=== PATIENT | male | born 1955 | race Caucasian/White ===

== ENCOUNTER 2017-04-09 20:17 | Emergency (ER) | payer MEDICAID, OTHER ==
[2017-04-09] MEDS ORDERED: Clindamycin CAP* 150 MG PO ONE (23:39)
[2017-04-09] MEDS ORDERED: Ibuprofen TAB* 600 MG PO ONE (23:39)
[2017-04-10] MEDS ORDERED: HYDROcodone/ACETAMIN 5-325 MG* 1 TAB PO ONE (00:36)
[2017-04-10] MEDS ORDERED: Clindamycin CAP* 150 MG ONE ×2 (00:41)
[2017-04-10 00:50] VITALS: BP 152/102
--- NOTE | 2017-04-10 07:26 | RAD ---
INDICATION: Concern for aspiration. COMPARISON: There are no prior studies available for comparison. TECHNIQUE: Dual-energy PA and lateral views of the chest were obtained. FINDINGS: The heart is within normal limits in size. Mediastinal and hilar contours appear within normal limits. The lungs are slightly hyperinflated and clear. No pleural effusion is seen. No radiopaque foreign body is noted. IMPRESSION: FINDINGS SUGGESTIVE OF COPD, NO EVIDENCE FOR ACUTE FINDING.
--- NOTE | 2017-04-10 09:05 | ED ---
Complex/Multi-Sys Presentation - HPI Summary HPI Summary: Pt sent from dentist, potential inhalation of tooth particles. Pt with extraction of three teeth 1600 this date. Pt denies SOB/cough. He states while getting 3 teeth extracted today at the dentist, he feels as though several teeth were broken and he either swallowed them or they got into his lungs. He denies any symptoms, but after he told the dentist such, the dentist sent him to the ED for a chest xray to assure no aspiration as occurred. He was also unable to pick up driver any of his medications based on his medicaid not being approved. He states he was prescribed Clindamycin 875mg and pain medication. He has not taken anything since discharge approximately 4 hours ago. Denies any and all symptoms including chest pain, SOB or dysphagia. - History Of Current Complaint Chief Complaint: EDGeneral Time Seen by Provider: 04/09/17 22:54 Hx Obtained From: Patient Onset/Duration: Gradual Onset Timing: Constant Severity Currently: Moderate Severity Initially: Moderate Location: Pain At: - Tooth 7, 8, 9 Character: Throbbing Associated Signs And Symptoms: Negative: Syncope, Headache, SOB, Cough, Wheezing , Hemoptysis, Chest Pain - Allergies/Home Medications Allergies/Adverse Reactions: Allergies Allergy/AdvReac Type Severity Reaction Status Date / Time No Known Allergies Allergy Verified 04/09/17 20:36 PMH/Surg Hx/FS Hx/Imm Hx Previously Healthy: Yes - Surgical History Surgery Procedure, Year, and Place: ulnar nerve L elbow 4 yrs ago Infectious Disease History: No Infectious Disease History: Denies: Traveled Outside the [place] in Last 30 Days - Social History Occupation: Employed Full-time Lives: With Family Alcohol Use: None Substance Use Type: Reports: None Hx Tobacco Use: Yes Smoking Status (MU): Unknown if Ever Smoked Review of Systems Constitutional: Negative Negative: Fever, Chills, Fatigue Eyes: Negative Positive: Dental Pain Cardiovascular: Negative Negative: Palpitations, Chest Pain Negative: Shortness Of Breath, Cough Positive: no symptoms reported, see HPI Skin: Negative Neurological: Negative All Other Systems Reviewed And Are Negative: Yes Physical Exam Triage Information Reviewed: Yes Vital Signs On Initial Exam: Initial Vitals Temp Pulse Resp BP Pulse Ox 98.3 F 76 16 173/88 96 04/09/17 20:25 04/09/17 20:25 04/09/17 20:25 04/09/17 20:25 04/09/17 20:25 Vital Signs Reviewed: Yes Appearance: Positive: Well-Appearing, Well-Nourished Skin: Positive: Warm, Skin Color Reflects Adequate Perfusion Head/Face: Positive: Normal Head/Face Inspection Eyes: Positive: EOMI, EMERITA, Conjunctiva Clear ENT: Positive: Normal ENT inspection Dental: Positive: Gross Decay/Caries @, Other - Tooth 7, 8, 9 Neck: Positive: Supple, No Lymphadenopathy Respiratory/Lung Sounds: Positive: Clear to Auscultation, Breath Sounds Present Cardiovascular: Positive: RRR, Pulses are Symmetrical in both Upper and Lower Extremities Neurological: Positive: Sensory/Motor Intact, Alert, Oriented to Person Place, Time, Speech Normal Psychiatric: Positive: Normal, Affect/Mood Appropriate Diagnostics - Vital Signs Vital Signs Temp Pulse Resp BP Pulse Ox 04/10/17 00:48 99.1 F 75 16 152/102 96 04/09/17 20:25 98.3 F 76 16 173/88 96 - Laboratory Lab Statement: Any lab studies that have been ordered have been reviewed, and results considered in the medical decision making process. Complex Multi-Symp Course/Dx Course Of Treatment: Patient arrives with request of chest xray by dentist following teeth extraction from tooth 7, 8, 9. chest xray read as normal. He denies any and all symptoms. I have given him 7 days supply of clindamycin 300mg four times daily for 7 days. I have given him an urgent RX d/t his medicaid insurance denial. I have advised ibuprofen in the meantime, but he will need to follow up to get a pain medication script. He is agreeable to this and to discharge. - Diagnoses Provider Diagnoses: H/O tooth extraction Discharge - Discharge Plan Condition: Stable Disposition: HOME Prescriptions: Clindamycin Cap(NF) [Clindamycin Cap 300 mg Cap(NF)] 300 mg PO Q6H #28 cap Referrals: No Primary Care Phys,NOPCP [Primary Care Provider] - Additional Instructions: Please follow up with your dentist Clindamycin 300mg four times daily for 7 days Continue to work with your insurance company to obtain your other medications
== END 2017-04-10 00:48 | disposition home or self-care (01) ==
LOC: ED 20:17
DX: K08.89 Other specified disorders of teeth and supporting structures (principal); K08.409 Partial loss of teeth, unspecified cause, unspecified class
CPT/HCPCS: 71046; 99282; A9270-GY

== ENCOUNTER 2017-04-11 11:28 | Emergency (ER) | payer MEDICAID ==
[2017-04-11 11:37] VITALS: BP 128/81
--- NOTE | 2017-04-11 11:58 | UC ---
Skin Complaint HPI - HPI Summary HPI Summary: 61 year old male with skin complaint . He had dental extraction 2 days ago due to numerous infected teeth. Started on clinda and 12 hours after taking the 1st dose started to note lower lip swelling. it worrsened to the point he did not take the med anymore after 4 pm yesterday. he states he had rash as well. it is improved at this time as the rash and the lip swelling present but much better than yesterday. he came in because he has the infection in his teeth and wants to ensure he can be treated with a different antibiotic. no fever. - History of Current Complaint Chief Complaint: UCAllergicReaction Time Seen by Provider: 04/11/17 11:52 Stated Complaint: SWOLLEN LIP Hx Obtained From: Patient Timing: Constant Onset Severity: Mild Current Severity: Moderate Related History: Recent change in medication - Allergy/Home Medications Allergies/Adverse Reactions: Allergies Allergy/AdvReac Type Severity Reaction Status Date / Time No Known Allergies Allergy Verified 04/11/17 11:32 Home Medications: Home Medications oxyCODONE/Acetam5/325MG PREPAK [Percocet 5/325 TAB*] 04/11/17 [History] Review of Systems Skin: Other - lip swelling ENT: Dental Pain All Other Systems Reviewed And Are Negative: Yes PMH/Surg Hx/FS Hx/Imm Hx Previously Healthy: Yes - Surgical History Surgical History: Yes Surgery Procedure, Year, and Place: ulnar nerve L elbow 4 yrs ago - Family History Known Family History: Positive: None - Social History Alcohol Use: None Substance Use Type: None Smoking Status (MU): Never Smoked Tobacco Physical Exam Triage Information Reviewed: Yes Appearance: Well-Appearing, No Pain Distress, Well-Nourished Vital Signs: Initial Vital Signs Temp 98.5 F 04/11/17 11:35 Pulse 82 04/11/17 11:35 Resp 20 04/11/17 11:35 BP 128/81 04/11/17 11:35 Pulse Ox 98 04/11/17 11:35 Vital Signs Reviewed: Yes Eye Exam: Normal ENT Exam: Normal Dental: Positive: Gross Decay/Caries @ - Right upper gum with healing abscess / purulent material present, only a few teeth in the mouth Neck exam: Normal Neck: Positive: 1 Respiratory Exam: Normal Cardiovascular Exam: Normal Musculoskeletal Exam: Normal Neurological Exam: Normal Psychological Exam: Normal Skin Exam: Normal Course/Dx - Course Course Of Treatment: Lip swelling and rash improved but start hydroxyzine at this time. He has no shortness of breath, no throat closing , no dyphagia, no wheeze and will start amox for dental abscess. If Sx persist or worsen then he will go to ED. - Diagnoses Provider Diagnoses: Angioedema and dental abscess Discharge - Discharge Plan Condition: Good Disposition: HOME Prescriptions: Amoxicillin PO (*) [Amoxicillin 500 MG CAP*] 500 mg PO TID #30 cap hydrOXYzine HCL TAB* [Atarax 25 MG TAB*] 25 mg PO TID PRN #20 tab PRN Reason: Itching Patient Education Materials: Angioedema (ED), Dental Abscess (ED) Referrals: No Primary Care Phys,NOPCP [Primary Care Provider] - 3 Days Images Dental: 1 - no teeth, purlent material present
== END 2017-04-11 12:22 | disposition home or self-care (01) ==
LOC: UCEAST 11:28
DX: T78.3XXA Angioneurotic edema, initial encounter (principal); K04.7 Periapical abscess without sinus; Z98.890 Other specified postprocedural states; X58.XXXA Exposure to other specified factors, initial encounter; Y92.9 Unspecified place or not applicable
CPT/HCPCS: 99211; G0463

== ENCOUNTER 2019-12-23 18:57 | Inpatient (IN) ==
[2019-12-23] MEDS ORDERED: Morphine 4 MG/ML VIAL (1 ml) IV ONE (20:31)
[2019-12-23] MEDS ORDERED: NS 0.9% 1000 ml BAG 1,000 ML IV ONE (20:31)
[2019-12-23 20:36] LABS: ABS Lymphocytes 1.4 10^3/ul (1.0-4.8); ABS Monocytes 0.8 10^3/ul (0-0.8); ABS Neutrophils 11.5 10^3/ul (1.5-7.7); Eosinophil % 0.3 %; Hematocrit 39 % (42-52); Hemoglobin 13.3 g/dL (14.0-18.0); Lymphocyte % 10.1 %; Mean Corpuscular HGB Conc 34 g/dL (31-36); Mean Corpuscular Hemoglobin 30 pg (27-31); Mean Corpuscular Volume 89 fL (80-94); Mean Platelet Volume 8.4 fL (7.4-10.4); Platelet Count 357 10^3/uL (150-450); Red Blood Count 4.37 10^6 /uL (4.18-5.48); Red Cell Distribution Width 14 % (10-15); White Blood Count 13.8 10^3/uL (3.5-10.8)
[2019-12-23 20:54] LABS: Albumin 3.3 g/dL (3.2-5.2); Albumin/Globulin Ratio 0.6 (1-3); BUN/Creatinine Ratio 13.5 (8-20); C Reactive Protein 242.02 mg/L (<8.01); Calcium 8.5 mg/dL (8.6-10.3); EGFR African American 128.4 (>60); EGFR Non-African American 106.2 (>60); Globulin 5.2 g/dL (2-4); Potassium 3.4 mmol/L (3.5-5.0); Total Bilirubin 0.8 mg/dL (0.2-1.0); Total Protein 8.5 g/dL (6.4-8.9)
[2019-12-23] MEDS ORDERED: Iohexol 300 (CONTRAST) 10 ML SDV IV ONE (21:06)
[2019-12-23 22:02] LABS: Salicylate 3.4 mg/dL (<30)
[2019-12-23 22:56] LABS: INR 1.77 (0.82-1.09)
[2019-12-23] MEDS ORDERED: Zosyn per Pharmacy NOTE FOLLOW UP SCH (23:45)
[2019-12-23] MEDS ORDERED: Piperacillin/Tazobac ADVAN 3.375 GM in NS 0.9% 100 ml BAG 100 ML IV ONE (23:50)
[2019-12-23] MEDS ORDERED: Morphine 4 MG/ML VIAL (1 ml) IV PRN (23:56)
[2019-12-23] MEDS ORDERED: Potassium Chlor 20 meq TAB.ER PO ONE (23:56)
[2019-12-24] MEDS ORDERED: Ondansetron 4 mg VIAL 2 MG/ML 2 ml VIAL IV PRN (00:17)
[2019-12-24 01:50] LABS: Urine Appearance Clear; Urine Bilirubin Negative (Negative); Urine Blood 1+ (Negative); Urine Color Yellow; Urine Glucose Negative (Negative); Urine Ketones Trace (Negative); Urine Nitrite Negative (Negative); Urine Protein Negative (Negative); Urine Specific Gravity 1.042 (1.010-1.030); Urine Urobilinogen Positive (Negative)
[2019-12-24 01:57] LABS: Urine Bacteria Absent (Absent); Urine Red Blood Cell 1+(3-5/hpf) (Absent); Urine White Blood Cell Trace(0-5/hpf) (Absent)
[2019-12-24 03:02] LABS: ABS Monocytes 0.9 10^3/ul (0-0.8); ABS Neutrophils 9.7 10^3/ul (1.5-7.7); Eosinophil % 0.2 %; Hematocrit 33 % (42-52); Lymphocyte % 15.6 %; Mean Corpuscular HGB Conc 34 g/dL (31-36); Mean Corpuscular Hemoglobin 30 pg (27-31); Mean Corpuscular Volume 88 fL (80-94); Mean Platelet Volume 8.3 fL (7.4-10.4); Platelet Count 297 10^3/uL (150-450); Red Blood Count 3.72 10^6 /uL (4.18-5.48); Red Cell Distribution Width 14 % (10-15); White Blood Count 12.6 10^3/uL (3.5-10.8)
[2019-12-24 03:22] LABS: EGFR African American 180.9 (>60); EGFR Non-African American 149.5 (>60)
[2019-12-24] MEDS: Heparin 5000 UNITS/ML 1 mL VIAL IV SCH ×4 (03:35→23:25)
[2019-12-24] MEDS: Heparin DRIP 25,000 UNITS BAG 25,000 UNITS/500 ML BAG IV SCH ×4 (03:37→20:10)
[2019-12-24 03:51] LABS: Hepatitis B Surface Antigen Nonreactive (Nonreactive)
[2019-12-24 03:56] LABS: Hepatitis A Ab IgM Negative (Negative)
[2019-12-24 03:57] LABS: Hepatitis B Core IgM Nonreactive (Nonreactive)
[2019-12-24] MEDS: ZOSYN 3.375 GM Q8H per EXTENDED INFUSION IV SCH ×3 (05:34→21:30)
[2019-12-24 05:37] LABS: ABS Basophils 0.1 10^3/ul (0-0.2); ABS Lymphocytes 1.8 10^3/ul (1.0-4.8); ABS Monocytes 0.8 10^3/ul (0-0.8); ABS Neutrophils 10.3 10^3/ul (1.5-7.7); Eosinophil % 0.1 %; Hematocrit 32 % (42-52); Hemoglobin 10.4 g/dL (14.0-18.0); Lymphocyte % 13.8 %; Mean Corpuscular HGB Conc 33 g/dL (31-36); Mean Corpuscular Hemoglobin 29 pg (27-31); Mean Corpuscular Volume 89 fL (80-94); Mean Platelet Volume 8.2 fL (7.4-10.4); Platelet Count 301 10^3/uL (150-450); Red Blood Count 3.56 10^6 /uL (4.18-5.48); Red Cell Distribution Width 14 % (10-15)
[2019-12-24 05:54] LABS: Albumin 2.7 g/dL (3.2-5.2); Albumin/Globulin Ratio 0.7 (1-3); BUN/Creatinine Ratio 13.2 (8-20); Calcium 7.6 mg/dL (8.6-10.3); EGFR African American 188.8 (>60); Globulin 3.8 g/dL (2-4); Indirect Bilirubin 0.5 mg/dL (0.3-1.0); Potassium 3.8 mmol/L (3.5-5.0); Total Bilirubin 0.7 mg/dL (0.2-1.0); Total Protein 6.5 g/dL (6.4-8.9)
[2019-12-24 06:09] LABS: Hepatitis C Antibody Reactive (Negative)
[2019-12-24 14:16] LABS: Magnesium 1.8 mg/dL (1.9-2.7)
[2019-12-24 14:47] LABS: TSH Ultra Thyroid Stim Horm 2.93 mcIU/mL (0.34-5.60)
[2019-12-24] MEDS ORDERED: Gadoxetate (CONTRAST) 181.43 MG/ML 10 ML SDV IV ONE (15:22)
[2019-12-24] MEDS ORDERED: Magnesium Sulfate 2 gm BAG 2 GM/50 ML BAG IVPB ONE (16:00)
[2019-12-25] MEDS: ZOSYN 3.375 GM Q8H per EXTENDED INFUSION IV SCH ×3 (05:16→21:03)
[2019-12-25 05:58] LABS: ABS Eosinophils 0.1 10^3/ul (0-0.6); ABS Lymphocytes 2.2 10^3/ul (1.0-4.8); ABS Monocytes 0.6 10^3/ul (0-0.8); ABS Neutrophils 6.6 10^3/ul (1.5-7.7); Eosinophil % 1.2 %; Hematocrit 30 % (42-52); Hemoglobin 10.2 g/dL (14.0-18.0); Lymphocyte % 23.2 %; Mean Corpuscular HGB Conc 35 g/dL (31-36); Mean Corpuscular Hemoglobin 31 pg (27-31); Mean Corpuscular Volume 89 fL (80-94); Mean Platelet Volume 8.7 fL (7.4-10.4); Platelet Count 252 10^3/uL (150-450); Red Blood Count 3.34 10^6 /uL (4.18-5.48); Red Cell Distribution Width 14 % (10-15); White Blood Count 9.6 10^3/uL (3.5-10.8)
[2019-12-25 06:14] LABS: Albumin 2.6 g/dL (3.2-5.2); Albumin/Globulin Ratio 0.7 (1-3); BUN/Creatinine Ratio 11.3 (8-20); Calcium 7.6 mg/dL (8.6-10.3); EGFR African American 188.8 (>60); Globulin 3.8 g/dL (2-4); Potassium 3.5 mmol/L (3.5-5.0); Total Bilirubin 0.5 mg/dL (0.2-1.0); Total Protein 6.4 g/dL (6.4-8.9)
[2019-12-25 09:57] LABS: C Reactive Protein 186.63 mg/L (<8.01)
[2019-12-25 10:27] LABS: Vitamin D Total 25(OH) 16.6 ng/mL (20-50)
[2019-12-25] MEDS: Heparin DRIP 25,000 UNITS BAG 25,000 UNITS/500 ML BAG IV SCH (11:51)
[2019-12-25] MEDS: Heparin 5000 UNITS/ML 1 mL VIAL IV SCH (13:49)
[2019-12-26] MEDS: Heparin DRIP 25,000 UNITS BAG 25,000 UNITS/500 ML BAG IV SCH ×3 (02:37→23:30)
[2019-12-26] MEDS: Heparin 5000 UNITS/ML 1 mL VIAL IV SCH (02:39)
[2019-12-26] MEDS: ZOSYN 3.375 GM Q8H per EXTENDED INFUSION IV SCH ×3 (04:21→20:32)
[2019-12-26] MEDS ORDERED: HYDROmorphone 1 MG/1 ML SYRINGE IV SLOW PU ONE ×2 (05:39→22:02)
[2019-12-26] MEDS ORDERED: HYDROmorphone 1 MG/1 ML SYRINGE ONE (05:43)
[2019-12-26 06:25] LABS: ABS Eosinophils 0.1 10^3/ul (0-0.6); ABS Lymphocytes 1.9 10^3/ul (1.0-4.8); ABS Monocytes 0.6 10^3/ul (0-0.8); ABS Neutrophils 6.8 10^3/ul (1.5-7.7); Hematocrit 29 % (42-52); Hemoglobin 9.7 g/dL (14.0-18.0); Lymphocyte % 20.2 %; Mean Corpuscular HGB Conc 34 g/dL (31-36); Mean Corpuscular Hemoglobin 30 pg (27-31); Mean Corpuscular Volume 89 fL (80-94); Mean Platelet Volume 8.7 fL (7.4-10.4); Platelet Count 253 10^3/uL (150-450); Red Blood Count 3.23 10^6 /uL (4.18-5.48); Red Cell Distribution Width 14 % (10-15); White Blood Count 9.4 10^3/uL (3.5-10.8)
[2019-12-26 06:39] LABS: Albumin 2.6 g/dL (3.2-5.2); Albumin/Globulin Ratio 0.7 (1-3); BUN/Creatinine Ratio 12.5 (8-20); Calcium 7.8 mg/dL (8.6-10.3); EGFR African American 177.2 (>60); EGFR Non-African American 146.4 (>60); Globulin 3.8 g/dL (2-4); Potassium 3.6 mmol/L (3.5-5.0); Total Bilirubin 0.3 mg/dL (0.2-1.0); Total Protein 6.4 g/dL (6.4-8.9)
[2019-12-26 07:45] LABS: INR 1.81 (0.82-1.09)
[2019-12-26] MEDS ORDERED: Cholecalciferol (VIT D3) 1,000 unit TAB PO SCH (09:00)
[2019-12-26] MEDS: Pantoprazole VIAL 40 MG VIAL IV SCH ×2 (09:16→20:31)
[2019-12-26] MEDS: NS 0.9% 1000 ml BAG 1,000 ML IV SCH (09:16)
[2019-12-26 11:24] LABS: Total Iron Binding Capacity 165 mcg/dL (250-450); Transferrin 118 mg/dL (203-362)
[2019-12-26 11:25] LABS: % Iron Saturation 12 % (15-55); Iron < 20 ug/dL (50-212); Unsaturated Iron Binding < 150 ug/dL
[2019-12-26 11:48] LABS: Vitamin B12 591 pg/mL (180-914)
[2019-12-26] MEDS ORDERED: Heparin 5000 UNITS/ML 1 mL VIAL IV SCH (17:00)
[2019-12-26] MEDS: Cholecalciferol (VIT D3) 1,000 unit TAB PO SCH (20:30)
[2019-12-26 22:19] LABS: ABS Basophils 0.1 10^3/ul (0-0.2); ABS Eosinophils 0.1 10^3/ul (0-0.6); ABS Lymphocytes 1.9 10^3/ul (1.0-4.8); ABS Monocytes 0.5 10^3/ul (0-0.8); ABS Neutrophils 4.8 10^3/ul (1.5-7.7); Eosinophil % 1.4 %; Hematocrit 29 % (42-52); Lymphocyte % 25.5 %; Mean Corpuscular HGB Conc 35 g/dL (31-36); Mean Corpuscular Hemoglobin 31 pg (27-31); Mean Corpuscular Volume 89 fL (80-94); Mean Platelet Volume 8.4 fL (7.4-10.4); Platelet Count 249 10^3/uL (150-450); Red Blood Count 3.26 10^6 /uL (4.18-5.48); Red Cell Distribution Width 14 % (10-15); White Blood Count 7.3 10^3/uL (3.5-10.8)
[2019-12-26 22:34] LABS: Albumin 2.6 g/dL (3.2-5.2); Albumin/Globulin Ratio 0.7 (1-3); BUN/Creatinine Ratio 11.9 (8-20); Calcium 7.8 mg/dL (8.6-10.3); EGFR African American 166.8 (>60); EGFR Non-African American 137.9 (>60); Globulin 3.8 g/dL (2-4); Potassium 3.7 mmol/L (3.5-5.0); Total Bilirubin 0.3 mg/dL (0.2-1.0); Total Protein 6.4 g/dL (6.4-8.9)
[2019-12-27] MEDS: NS 0.9% 1000 ml BAG 1,000 ML IV SCH (01:49)
[2019-12-27 02:06] LABS: Urine Appearance Clear; Urine Bilirubin Negative (Negative); Urine Blood Negative (Negative); Urine Color Yellow; Urine Glucose Negative (Negative); Urine Ketones Negative (Negative); Urine Nitrite Negative (Negative); Urine Protein Negative (Negative); Urine Specific Gravity 1.016 (1.010-1.030); Urine Urobilinogen Negative (Negative)
[2019-12-27] MEDS: ZOSYN 3.375 GM Q8H per EXTENDED INFUSION IV SCH ×3 (04:41→22:19)
[2019-12-27 07:04] LABS: ABS Basophils 0.1 10^3/ul (0-0.2); ABS Eosinophils 0.1 10^3/ul (0-0.6); ABS Lymphocytes 1.9 10^3/ul (1.0-4.8); ABS Monocytes 0.6 10^3/ul (0-0.8); ABS Neutrophils 5.3 10^3/ul (1.5-7.7); Eosinophil % 1.5 %; Hematocrit 26 % (42-52); Lymphocyte % 24.2 %; Mean Corpuscular HGB Conc 34 g/dL (31-36); Mean Corpuscular Hemoglobin 30 pg (27-31); Mean Corpuscular Volume 89 fL (80-94); Mean Platelet Volume 8.3 fL (7.4-10.4); Platelet Count 231 10^3/uL (150-450); Red Blood Count 2.96 10^6 /uL (4.18-5.48); Red Cell Distribution Width 14 % (10-15)
[2019-12-27 07:20] LABS: Albumin 2.5 g/dL (3.2-5.2); Albumin/Globulin Ratio 0.7 (1-3); BUN/Creatinine Ratio 13.2 (8-20); Calcium 7.5 mg/dL (8.6-10.3); EGFR African American 188.8 (>60); Globulin 3.7 g/dL (2-4); Potassium 3.7 mmol/L (3.5-5.0); Total Bilirubin 0.3 mg/dL (0.2-1.0); Total Protein 6.2 g/dL (6.4-8.9)
[2019-12-27] MEDS: Pantoprazole VIAL 40 MG VIAL IV SCH ×2 (09:05→22:10)
[2019-12-27] MEDS: Cholecalciferol (VIT D3) 1,000 unit TAB PO SCH (09:12)
[2019-12-27] MEDS ORDERED: fentaNYL 100 mcg/2 ml 50 MCG/ML VIAL ONE ×2 (12:11→12:13)
[2019-12-27] MEDS ORDERED: Midazolam 2 mg/2 ml VIAL 1 mg/ml 2 ml VIAL (2 mg) ONE (12:12)
[2019-12-27 13:51] LABS: C Reactive Protein 123.4 mg/L (<8.01)
[2019-12-27 14:57] LABS: Body Fluid Source OTH
[2019-12-27] MEDS ORDERED: Heparin 5000 UNITS/ML 1 mL VIAL IV PRN (16:00)
[2019-12-27] MEDS ORDERED: HYDROmorphone 1 MG/1 ML SYRINGE IV SLOW PU PRN (17:24)
[2019-12-27] MEDS: Heparin DRIP 25,000 UNITS BAG 25,000 UNITS/500 ML BAG IV SCH (17:44)
[2019-12-27 18:01] LABS: Body Fluid Mono 2 %
[2019-12-27] MEDS: HYDROmorphone 0.5 MG/0.5 ML SYRINGE IV SLOW PU PRN (22:17)
[2019-12-28] MEDS: HYDROmorphone 0.5 MG/0.5 ML SYRINGE IV SLOW PU PRN ×8 (01:48→23:55)
[2019-12-28] MEDS: ZOSYN 3.375 GM Q8H per EXTENDED INFUSION IV SCH ×3 (04:53→20:44)
[2019-12-28 07:20] LABS: ABS Basophils 0.1 10^3/ul (0-0.2); ABS Eosinophils 0.1 10^3/ul (0-0.6); ABS Lymphocytes 1.9 10^3/ul (1.0-4.8); ABS Monocytes 0.5 10^3/ul (0-0.8); ABS Neutrophils 4.3 10^3/ul (1.5-7.7); Eosinophil % 1.7 %; Hematocrit 27 % (42-52); Hemoglobin 9.3 g/dL (14.0-18.0); Lymphocyte % 27.8 %; Mean Corpuscular HGB Conc 34 g/dL (31-36); Mean Corpuscular Hemoglobin 30 pg (27-31); Mean Corpuscular Volume 89 fL (80-94); Mean Platelet Volume 8.5 fL (7.4-10.4); Platelet Count 212 10^3/uL (150-450); Red Blood Count 3.05 10^6 /uL (4.18-5.48); Red Cell Distribution Width 14 % (10-15); White Blood Count 6.9 10^3/uL (3.5-10.8)
[2019-12-28 07:38] LABS: BUN/Creatinine Ratio 7.4 (8-20); Calcium 7.5 mg/dL (8.6-10.3); EGFR African American 184.8 (>60); EGFR Non-African American 152.7 (>60); Potassium 3.5 mmol/L (3.5-5.0)
[2019-12-28] MEDS: Heparin DRIP 25,000 UNITS BAG 25,000 UNITS/500 ML BAG IV SCH ×2 (08:18→23:53)
[2019-12-28] MEDS: Pantoprazole VIAL 40 MG VIAL IV SCH ×2 (09:47→20:34)
[2019-12-28] MEDS: Cholecalciferol (VIT D3) 1,000 unit TAB PO SCH (09:55)
[2019-12-28 10:13] LABS: PNH RBC Partial Antigen Loss 0.02 % (0.00-0.99)
[2019-12-28] MEDS: Iron Sucrose 200 MG in NS 0.9% 100 ml BAG 100 ML IVPB SCH (11:12)
[2019-12-28] MEDS ORDERED: HYDROmorphone 0.5 MG/0.5 ML SYRINGE IV SLOW PU ONE (15:32)
[2019-12-29] MEDS: HYDROmorphone 0.5 MG/0.5 ML SYRINGE IV SLOW PU PRN ×7 (03:20→22:58)
[2019-12-29] MEDS: ZOSYN 3.375 GM Q8H per EXTENDED INFUSION IV SCH ×2 (04:27→12:59)
[2019-12-29] MEDS: Pantoprazole VIAL 40 MG VIAL IV SCH ×2 (09:57→21:02)
[2019-12-29] MEDS: Cholecalciferol (VIT D3) 1,000 unit TAB PO SCH (09:58)
[2019-12-29] MEDS: Iron Sucrose 200 MG in NS 0.9% 100 ml BAG 100 ML IVPB SCH (09:58)
[2019-12-29] MEDS: Heparin DRIP 25,000 UNITS BAG 25,000 UNITS/500 ML BAG IV SCH ×2 (16:42→20:29)
[2019-12-29] MEDS: cefTRIAXone 2 GM ADDV.VIAL 2 GM in NS 0.9% 100 ml BAG 100 ML IV SCH (21:02)
[2019-12-29] MEDS: NS 0.9% 1000 ml BAG 1,000 ML IV SCH (21:03)
[2019-12-30] MEDS: HYDROmorphone 0.5 MG/0.5 ML SYRINGE IV SLOW PU PRN ×4 (04:53→21:21)
[2019-12-30] MEDS: NS 0.9% 1000 ml BAG 1,000 ML IV SCH ×2 (09:05→20:58)
[2019-12-30] MEDS: Cholecalciferol (VIT D3) 1,000 unit TAB PO SCH (09:05)
[2019-12-30] MEDS: Pantoprazole VIAL 40 MG VIAL IV SCH ×2 (09:06→20:44)
[2019-12-30] MEDS: Iron Sucrose 200 MG in NS 0.9% 100 ml BAG 100 ML IVPB SCH (11:32)
[2019-12-30] MEDS: cefTRIAXone 2 GM ADDV.VIAL 2 GM in NS 0.9% 100 ml BAG 100 ML IV SCH (20:56)
[2019-12-31] MEDS: HYDROmorphone 0.5 MG/0.5 ML SYRINGE IV SLOW PU PRN (02:53)
[2019-12-31] MEDS ORDERED: HYDROmorphone 0.5 MG/0.5 ML SYRINGE IV SLOW PU PRN (08:07)
[2019-12-31] MEDS: NS 0.9% 1000 ml BAG 1,000 ML IV SCH ×2 (09:26→20:41)
[2019-12-31] MEDS: Pantoprazole VIAL 40 MG VIAL IV SCH ×2 (09:26→20:49)
[2019-12-31] MEDS: Cholecalciferol (VIT D3) 1,000 unit TAB PO SCH (09:27)
[2019-12-31] MEDS: Iron Sucrose 200 MG in NS 0.9% 100 ml BAG 100 ML IVPB SCH (11:13)
[2019-12-31] MEDS: cefTRIAXone 2 GM ADDV.VIAL 2 GM in NS 0.9% 100 ml BAG 100 ML IV SCH (20:41)
[2020-01-01] MEDS: Cholecalciferol (VIT D3) 1,000 unit TAB PO SCH (07:47)
[2020-01-01] MEDS: Pantoprazole VIAL 40 MG VIAL IV SCH ×2 (07:49→21:31)
[2020-01-01] MEDS: Iron Sucrose 200 MG in NS 0.9% 100 ml BAG 100 ML IVPB SCH (09:49)
[2020-01-01] MEDS: CMCS - Oral Rinse (Biotene)(NF) 237 ML or 473 ML ORAL RINSE BTL MT SCH ×4 (13:34→21:34)
[2020-01-01] MEDS: cefTRIAXone 2 GM ADDV.VIAL 2 GM in NS 0.9% 100 ml BAG 100 ML IV SCH (21:31)
[2020-01-02] MEDS: CMCS - Oral Rinse (Biotene)(NF) 237 ML or 473 ML ORAL RINSE BTL MT SCH ×5 (05:20→21:27)
[2020-01-02] MEDS ORDERED: Buffered Lidocaine 1% SYRIN 1 ml INTRADERM ONE (08:51)
[2020-01-02] MEDS: Cholecalciferol (VIT D3) 1,000 unit TAB PO SCH (09:08)
[2020-01-02] MEDS: Iron Sucrose 200 MG in NS 0.9% 100 ml BAG 100 ML IVPB SCH (09:09)
[2020-01-02] MEDS: Pantoprazole VIAL 40 MG VIAL IV SCH ×2 (09:13→21:28)
[2020-01-02] MEDS ORDERED: fentaNYL 100 mcg/2 ml 50 MCG/ML VIAL ONE (13:56)
[2020-01-02] MEDS ORDERED: Midazolam 10 mg/10 ml VIAL 1 mg/ml 10 ml VIAL (10 mg) ONE (13:57)
[2020-01-02] MEDS: cefTRIAXone 2 GM ADDV.VIAL 2 GM in NS 0.9% 100 ml BAG 100 ML IV SCH (21:28)
[2020-01-03] MEDS: CMCS - Oral Rinse (Biotene)(NF) 237 ML or 473 ML ORAL RINSE BTL MT SCH ×5 (06:00→17:53)
[2020-01-03] MEDS: Cholecalciferol (VIT D3) 1,000 unit TAB PO SCH (08:29)
[2020-01-03] MEDS: Pantoprazole VIAL 40 MG VIAL IV SCH (08:29)
[2020-01-03 10:56] LABS: ABS Eosinophils 0.1 10^3/ul (0-0.6); ABS Lymphocytes 1.1 10^3/ul (1.0-4.8); ABS Monocytes 0.6 10^3/ul (0-0.8); ABS Neutrophils 5.6 10^3/ul (1.5-7.7); Eosinophil % 1.3 %; Hematocrit 33 % (42-52); Hemoglobin 10.9 g/dL (14.0-18.0); Lymphocyte % 14.9 %; Mean Corpuscular HGB Conc 33 g/dL (31-36); Mean Corpuscular Hemoglobin 30 pg (27-31); Mean Corpuscular Volume 90 fL (80-94); Mean Platelet Volume 8.4 fL (7.4-10.4); Platelet Count 232 10^3/uL (150-450); Red Blood Count 3.69 10^6 /uL (4.18-5.48); Red Cell Distribution Width 15 % (10-15); White Blood Count 7.4 10^3/uL (3.5-10.8)
[2020-01-03 11:08] LABS: Calcium 8.1 mg/dL (8.6-10.3); Potassium 3.7 mmol/L (3.5-5.0)
[2020-01-03 11:13] LABS: BUN/Creatinine Ratio 8.1 (8-20); C Reactive Protein 42.39 mg/L (<8.01); EGFR African American 157.5 (>60); EGFR Non-African American 130.2 (>60)
[2020-01-03 11:48] VITALS: BP 129/69
[2020-01-03] MEDS ORDERED: Buffered Lidocaine 1% SYRIN 1 ml INTRADERM ONE (13:59)
== END 2020-01-03 18:10 | disposition home or self-care (01) | DRG 441 ==
LOC: ED 18:57 → MED 23:50
PROVIDERS: ADMIT Hospitalist; ATTEND Internal Medicine